=== PATIENT | female | born 1965 | race Two or more races ===

== ENCOUNTER → 2024-11-26 | Outpatient (CLI) | payer MEDICAID, SELFPAY ==
--- NOTE | 2024-11-26 15:00 | XR_ITS ---
Examination: Diagnostic digital mammography, bilateral Computer aided detection 3-D breast Tomosynthesis, bilateral Date and time of exam: November 26, 2024 1444 hours INDICATIONS: History bilateral breast biopsies Compared to mammograms dating to 12/15/2016 Technique: Nonmagnified MLO, CC views of the breasts to been obtained, reconstructed from 3-D Tomosynthesis images. R2 computer aided detection program utilized for evaluation of suspicious masses and/or abnormal calcifications. 3-D Tomosynthesis images obtained. Findings: The breasts are heterogeneously dense, which may obscure small masses Breast architecture is nodular Breast biopsy marker inner lower right breast Breast biopsy marker upper slightly inner left breast 12 mm focal asymmetry nipple level right breast 6.1 cm from the nipple on the CC view, 6 mm focal asymmetry outer left breast posterior depth 8.9 from the nipple on the CC view Impression: BI-RADS Category 0: Incomplete: Need additional imaging evaluation Recommend follow-up spot tomographic CC view, spot tomographic MLO view upper right breast Recommend follow-up spot tomographic views upper outer quadrant left breast to assess asymmetries above Recommend bilateral breast sonography to complete the workup.
== END | disposition home or self-care (01) ==
LOC: CDIM 14:03
PROVIDERS: PCP Physician Assistant; Referring Provider Physician Assistant; Visit Provider Physician Assistant
DX: N64.89 Other specified disorders of breast (principal)
CPT/HCPCS: 77062; 77066; G0279